=== PATIENT | male | born 1955 | race Caucasian/White ===

== ENCOUNTER 2023-02-11 17:56 | Emergency (ER) | payer MEDICARE, SELFPAY ==
[2023-02-11 18:03] VITALS: BP 138/78; BP 160/100; PULSE 78; PULSE 94; RESP 16; TEMP 36.9; O2SAT 94; O2SAT 96; BMI 21.7
--- NOTE | 2023-02-11 18:35 | ED.BACK ---
HPI - Back Pain/Injury General Chief Complaint: Back Pain/Injury Stated Complaint: severe back pain Time Seen by Provider: 02/11/23 18:05 Source: patient Mode of arrival: EMS Limitations: no limitations History of Present Illness HPI Narrative: Patient has history of chronic low back pain status post L4-L5 fusion for years bilateral hip replacement 4 years [facility] here for pain in low back and right hip for last 2 weeks no urinary or bowel incontinence no abdominal pain or nausea or vomiting Related Data Home Medications Medication Instructions Recorded Confirmed lisinopril 20 mg tablet 20 mg PO DAILY 08/18/20 sulfamethoxazole 800 1 tab PO DAILY 08/18/20 mg-trimethoprim 160 mg tablet Previous Rx's Medication Instructions Recorded atorvastatin 20 mg tablet 20 mg PO DAILY 3 months #90 tabs 08/18/20 cyclobenzaprine 10 mg tablet 10 mg PO BEDTIME #30 tabs 10/09/20 gabapentin 300 mg capsule 300 mg PO BEDTIME #30 caps 10/09/20 meloxicam 15 mg tablet 15 mg PO DAILY #20 tabs 10/09/20 oxycodone 5 mg tablet 5 mg PO Q6H PRN pain #20 tabs 02/11/23 Allergies Allergy/AdvReac Type Severity Reaction Status Date / Time gabapentin AdvReac Headache Verified 02/11/23 18:03 Review of Systems Review of Systems: Yes all other systems are reviewed and are negative PMF Past Medical History Medical History Physical exam Surgical History History of appendectomy History of eye surgery History of shoulder surgery History of surgery History of total left hip arthroplasty History of total right hip arthroplasty Family History Family History Father Automobile accident Mother Hypertension Stroke Alcoholism Family/Other Alcoholism Social History Social History Alcohol intake: never Smoked in Last 30 Days: No Use of substances other than those prescribed or required for medical reasons: No Advance Directives: No Advance Directives Information Provided: Yes Physical Exam Vital Signs: Vital Signs: Last Vital Signs Temp 98.3 F 02/11/23 19:42 Pulse 70 02/11/23 19:42 Resp 18 02/11/23 19:42 BP 159/85 H 02/11/23 19:42 Pulse Ox 97 02/11/23 19:42 O2 Del Method Room Air 02/11/23 19:42 BMI result Body Mass Index 21.7 Appearance: Alert. Oriented X3. Moderate distal Eyes: PERRLA, No Nystagmus ENT: Pharynx normal. Oral Mucosa moist Neck: Normal inspection. Neck supple. CVS: Normal heart rate and rhythm. Pulses normal. Respiratory: No respiratory distress. Equal air entry bilateral, no wheezing/rales/rhonchi Abdomen: Soft and nontender. Bowel sounds are present, no mass palpable, no CVA tenderness Skin: Skin warm and dry. Normal skin color. Normal skin turgor. Extremities: No lower extremity edema. No calf tenderness, secral sensation intact back: Diffuse tenderness L3-L4 L5, right hip tenderness in the groin area good range of movement Neuro: Oriented X 3. No motor deficit. No sensory deficit.No cerebellar signs , cranial nerves II-XII intact Medications Administered Discontinued Medications Generic Name Dose Route Start Last Admin Trade Name Freq PRN Reason Stop Dose Admin Morphine Sulfate 15 mg 02/11/23 18:45 02/11/23 19:17 Morphine Sulfate Immed Release 15 Mg Tablet PO 02/11/23 18:46 15 mg ONCE ONE Administration Medical Decision Making Medical Decision Making [facility] Narrative: Patient x-ray without any acute fracture felt that patient home on pain management advised to follow up with his Pain Clinic/PCP Discharge Plan Discharge Clinical Impression: Lumbar radiculopathy Patient Disposition: Home, Self-Care Instructions: Lumbar Radiculopathy (ED) Additional Instructions: Take pain medication as prescribed and follow-up with your PCP/physical therapy Prescriptions: New oxycodone 5 mg tablet 5 mg PO Q6H PRN (Reason: pain) Qty: 20 0RF Rx Instructions: Partial Fill upon patient request. No Action gabapentin 300 mg capsule 300 mg PO BEDTIME Qty: 30 0RF cyclobenzaprine 10 mg tablet 10 mg PO BEDTIME Qty: 30 0RF meloxicam 15 mg tablet 15 mg PO DAILY Qty: 20 0RF atorvastatin 20 mg tablet 20 mg PO DAILY 90 Days Qty: 90 0RF
--- NOTE | 2023-02-11 19:19 | PC.NURSE ---
pt c/o severe lower back and bilateral hip pain, medicated with 15mg of morphine po
[2023-02-11 19:42] VITALS: BP 159/85; PULSE 70; RESP 18; TEMP 36.8; O2SAT 97
[2023-02-11 21:41] VITALS: BP 145/60; PULSE 74; RESP 16; TEMP 36.9; O2SAT 98
== END 2023-02-11 22:13 | disposition home or self-care (01) ==
PROVIDERS: Emergency Provider Internal Medicine
DX: M54.16 Radiculopathy, lumbar region (principal); M54.50 Low back pain, unspecified; Z79.899 Other long term (current) drug therapy
CPT/HCPCS: 72100; 73502; 99283; 99284